=== PATIENT | female | born 1955 | race African-American/Black ===

== ENCOUNTER 2018-05-04 16:50 | Emergency (ER) | payer MEDICAID, OTHER ==
[~2018-05-04] VITALS: Ht 165.1 cm; Wt 55.0 kg
[2018-05-04 17:35] VITALS: BP 162/89
[2018-05-04 19:54] LABS: BASOPHILS % 0.8 % (0.0-2.0); EOSINOPHILS % 1.9 % (0.0-5.0); HEMATOCRIT. 40.9 % (36.0-48.0); HEMOGLOBIN. 13.8 g/dL (12.0-16.0); LYMPHOCYTES % 28.2 % (20.0-50.0); MEAN CORPUSCULAR HEMOGLOBIN 33.2 pg (28.0-32.0); MEAN CORPUSCULAR VOLUME 98.1 fL (81.0-99.0); MEAN PLATELET VOLUME 13.2 fl (7.4-10.4); MONOCYTES % 6.4 % (2.0-8.0); NEUTROPHILS % 62.7 % (40.0-76.0); PLATELET 95 x1000/uL (130-400); RED BLOOD CELL COUNT 4.17 mill/uL (4.2-5.4); RED CELL DISTRIBUTION WIDTH 15.8 % (11.6-14.6)
[2018-05-04 19:58] LABS: CHLORIDE 110 mEq/L (98-107); INR 1.4; PROTHROMBIN TIME 14.1 sec (9.4-11.6)
[2018-05-04 20:02] LABS: ETHANOL BLOOD < 10 mg/dL
== END 2018-05-05 | disposition left against medical advice (07) ==
LOC: ER 16:50
DX: R10.9 Unspecified abdominal pain (principal); F17.200 Nicotine dependence, unspecified, uncomplicated; K74.60 Unspecified cirrhosis of liver; Z86.19 Personal history of other infectious and parasitic diseases; Z90.710 Acquired absence of both cervix and uterus; Z90.49 Acquired absence of other specified parts of digestive tract
CPT/HCPCS: 36415; 80053; 83690; 85025; 85610; 99284; G0482

== ENCOUNTER 2018-07-08 15:45 | Emergency (ER) | payer MEDICAID, OTHER ==
[~2018-07-08] VITALS: Ht 160 cm; Wt 59.0 kg
[2018-07-08] MEDS ORDERED: HYDROCODONE/ACETAMINOPHEN 5/325MG TABLET PO STA (16:55)
[2018-07-08 18:03] LABS: BASOPHILS % 0.4 % (0.0-2.0); HEMATOCRIT. 40.5 % (36.0-48.0); HEMOGLOBIN. 13.7 g/dL (12.0-16.0); LYMPHOCYTES % 29.7 % (20.0-50.0); MEAN CORPUSCULAR HEMOGLOBIN 33.6 pg (28.0-32.0); MEAN PLATELET VOLUME 11.1 fl (7.4-10.4); MONOCYTES % 8.6 % (2.0-8.0); NEUTROPHILS % 60.3 % (40.0-76.0); PLATELET 130 x1000/uL (130-400); RED BLOOD CELL COUNT 4.08 mill/uL (4.2-5.4); RED CELL DISTRIBUTION WIDTH 15.6 % (11.6-14.6)
[2018-07-08 18:05] LABS: CHLORIDE 107 mEq/L (98-107)
[2018-07-08 18:07] LABS: INR 1.3; PROTHROMBIN TIME 12.8 sec (9.1-11.1)
[2018-07-08 21:10] VITALS: BP 111/66
== END 2018-07-08 21:30 | disposition home or self-care (01) ==
LOC: ER 16:37
DX: R10.84 Generalized abdominal pain (principal); R14.0 Abdominal distension (gaseous); K59.00 Constipation, unspecified; E11.9 Type 2 diabetes mellitus without complications; I10 Essential (primary) hypertension; Z88.0 Allergy status to penicillin; Z88.5 Allergy status to narcotic agent
CPT/HCPCS: 36415; 49083; 80053; 83690; 85025; 85610; 87070; 87075; 87205; 89050; 99284

== ENCOUNTER 2018-07-11 19:18 | Emergency (ER) | payer MEDICAID ==
[~2018-07-11] VITALS: Ht 167.6 cm; Wt 63.0 kg
[2018-07-11] MEDS ORDERED: ACETAMINOPHEN 325MG TABLET PO ONE (22:15)
[2018-07-11 23:57] VITALS: BP 130/85
== END 2018-07-12 00:02 | disposition home or self-care (01) ==
LOC: ER 19:52
DX: R10.9 Unspecified abdominal pain (principal); F17.200 Nicotine dependence, unspecified, uncomplicated; E11.9 Type 2 diabetes mellitus without complications; Z88.0 Allergy status to penicillin; Z88.5 Allergy status to narcotic agent
CPT/HCPCS: 99283

== ENCOUNTER 2018-07-15 13:30 | Emergency (ER) | payer MEDICAID ==
[~2018-07-15] VITALS: Ht 167.6 cm; Wt 66.0 kg
[2018-07-15] MEDS ORDERED: ACETAMINOPHEN WITH CODEINE 300/30MG TABLET PO ONE (14:30)
[2018-07-15 15:00] LABS: BASOPHILS % 0.4 % (0.0-2.0); HEMOGLOBIN. 13.4 g/dL (12.0-16.0); LYMPHOCYTES % 32.1 % (20.0-50.0); MEAN CORPUSCULAR HEMOGLOBIN 32.9 pg (28.0-32.0); MEAN PLATELET VOLUME 11.4 fl (7.4-10.4); MONOCYTES % 8.8 % (2.0-8.0); NEUTROPHILS % 57.7 % (40.0-76.0); PLATELET 127 x1000/uL (130-400); RED BLOOD CELL COUNT 4.08 mill/uL (4.2-5.4); RED CELL DISTRIBUTION WIDTH 15.1 % (11.6-14.6)
[2018-07-15 15:06] LABS: INR 1.3; PROTHROMBIN TIME 12.6 sec (9.1-11.1)
[2018-07-15] MEDS ORDERED: SODIUM BICARBONATE 4% (2.4MEQ) 5ML VIAL IV ONE (15:06)
[2018-07-15] MEDS ORDERED: LIDOCAINE HCL 1% 10 MG/ML 10ML VIAL ONE (15:06)
[2018-07-15 15:11] LABS: CHLORIDE 106 mEq/L (98-107)
[2018-07-15] MEDS ORDERED: MORPHINE SULFATE 10 MG/ML CPJ IM ONE (16:15)
[2018-07-15 18:59] VITALS: BP 135/75
== END 2018-07-15 19:36 | disposition home or self-care (01) ==
LOC: ER 13:30
DX: R18.8 Other ascites (principal); F17.200 Nicotine dependence, unspecified, uncomplicated; E11.9 Type 2 diabetes mellitus without complications; Z88.0 Allergy status to penicillin; Z88.5 Allergy status to narcotic agent; Z98.890 Other specified postprocedural states
CPT/HCPCS: 36415; 49083; 80053; 83690; 85025; 85610; 87070; 87205; 89050; 96372; 99285; J2270; J3490; Z7610

== ENCOUNTER 2018-07-21 12:51 | Emergency (ER) | payer MEDICAID ==
[~2018-07-21] VITALS: Ht 165.1 cm; Wt 65.0 kg
[2018-07-21] MEDS ORDERED: LIDOCAINE HCL 1% 20ML VIAL (Pyxis) INJ ONE (13:58)
[2018-07-21] MEDS ORDERED: SODIUM BICARBONATE 4% (2.4MEQ) 5ML VIAL IV ONE (13:59)
[2018-07-21 14:10] LABS: BASOPHILS % 0.4 % (0.0-2.0); EOSINOPHILS % 0.9 % (0.0-5.0); HEMATOCRIT. 42.9 % (36.0-48.0); HEMOGLOBIN. 14.3 g/dL (12.0-16.0); LYMPHOCYTES % 32.9 % (20.0-50.0); MEAN CORPUSCULAR VOLUME 98.8 fL (81.0-99.0); MEAN PLATELET VOLUME 11.4 fl (7.4-10.4); MONOCYTES % 8.2 % (2.0-8.0); NEUTROPHILS % 57.6 % (40.0-76.0); PLATELET 136 x1000/uL (130-400); RED BLOOD CELL COUNT 4.34 mill/uL (4.2-5.4); RED CELL DISTRIBUTION WIDTH 15.5 % (11.6-14.6)
[2018-07-21 14:17] LABS: INR 1.2; PARTIAL THROMBOPLASTIN TIME 33.7 sec (23.4-31.0); PROTHROMBIN TIME 12.3 sec (9.1-11.1)
[2018-07-21] MEDS ORDERED: ACETAMINOPHEN 325MG TABLET PO ONE (15:45)
[2018-07-21 17:35] VITALS: BP 147/75
== END 2018-07-21 17:30 | disposition home or self-care (01) ==
LOC: ER 13:21
DX: R18.8 Other ascites (principal); K74.60 Unspecified cirrhosis of liver; G89.29 Other chronic pain; F41.9 Anxiety disorder, unspecified; E11.9 Type 2 diabetes mellitus without complications; R94.31 Abnormal electrocardiogram [ECG] [EKG]; H54.62 Unqualified visual loss, left eye, normal vision right eye; Z88.0 Allergy status to penicillin; Z86.19 Personal history of other infectious and parasitic diseases
CPT/HCPCS: 36415; 49083; 85025; 85610; 85730; 93005; 99285; J3490; Z7610

== ENCOUNTER 2018-08-09 12:59 | Emergency (ER) | payer MEDICAID ==
[~2018-08-09] VITALS: Ht 165.1 cm; Wt 70.0 kg
[2018-08-09] MEDS ORDERED: KETOROLAC 30MG/ML VIAL IV STA (13:25)
[2018-08-09] MEDS ORDERED: ONDANSETRON HCL 4MG/2ML INJ IV STA (13:25)
[2018-08-09 15:03] LABS: BASOPHILS % 0.4 % (0.0-2.0); EOSINOPHILS % 0.8 % (0.0-5.0); HEMATOCRIT. 39.7 % (36.0-48.0); HEMOGLOBIN. 13.5 g/dL (12.0-16.0); LYMPHOCYTES % 25.3 % (20.0-50.0); MEAN CORPUSCULAR HEMOGLOBIN 32.7 pg (28.0-32.0); MEAN CORPUSCULAR VOLUME 96.3 fL (81.0-99.0); MONOCYTES % 7.2 % (2.0-8.0); NEUTROPHILS % 66.3 % (40.0-76.0); PLATELET 107 x1000/uL (130-400); RED BLOOD CELL COUNT 4.12 mill/uL (4.2-5.4); RED CELL DISTRIBUTION WIDTH 15.1 % (11.6-14.6)
[2018-08-09 15:14] LABS: INR 1.4; PROTHROMBIN TIME 13.8 sec (9.1-11.1)
[2018-08-09 15:15] LABS: CHLORIDE 100 mEq/L (98-107)
[2018-08-09] MEDS ORDERED: POTASSIUM CHLORIDE 20MEQ TABLET SR PO ONE (15:30)
[2018-08-09 16:37] LABS: CLARITY URINE CLOUDY (CLEAR); COLOR URINE YELLOW (YELLOW); KETONES URINE NEGATIVE (NEGATIVE); LEUKOCYTE ESTERASE URINE 3+ (NEGATIVE); NITRITE URINE POSITIVE (NEGATIVE); OCCULT BLOOD URINE 2+ (NEGATIVE); PROTEIN URINE NEGATIVE (NEGATIVE)
[2018-08-09 17:54] VITALS: BP 153/64
== END 2018-08-09 17:56 | disposition home or self-care (01) ==
LOC: ER 13:39 → CANBEDREQ 17:18 → ER 17:56
DX: K86.1 Other chronic pancreatitis (principal); E87.6 Hypokalemia; N39.0 Urinary tract infection, site not specified; E11.9 Type 2 diabetes mellitus without complications; Z88.0 Allergy status to penicillin; Z88.5 Allergy status to narcotic agent
CPT/HCPCS: 36415; 71045; 80053; 81003; 83690; 85025; 85610; 87077; 87086; 87186; 93005; 96374; 96375; 99285; J1885; J2405

== ENCOUNTER 2018-09-08 11:00 | Emergency (ER) | payer MEDICAID ==
[~2018-09-08] VITALS: Ht 170.2 cm; Wt 65.5 kg
[2018-09-08 12:13] LABS: BASOPHILS % 0.6 % (0.0-2.0); EOSINOPHILS % 0.8 % (0.0-5.0); HEMATOCRIT. 45.3 % (36.0-48.0); HEMOGLOBIN. 15.4 g/dL (12.0-16.0); LYMPHOCYTES % 28.6 % (20.0-50.0); MEAN CORPUSCULAR HEMOGLOBIN 32.5 pg (28.0-32.0); MEAN CORPUSCULAR VOLUME 95.4 fL (81.0-99.0); MEAN PLATELET VOLUME 11.4 fl (7.4-10.4); MONOCYTES % 6.5 % (2.0-8.0); NEUTROPHILS % 63.5 % (40.0-76.0); PLATELET 143 x1000/uL (130-400); RED BLOOD CELL COUNT 4.75 mill/uL (4.2-5.4)
[2018-09-08 12:18] LABS: CHLORIDE 102 mEq/L (98-107)
[2018-09-08 12:29] LABS: INR 1.3; PROTHROMBIN TIME 12.6 sec (9.1-11.1)
[2018-09-08] MEDS ORDERED: MORPHINE SULFATE 4 MG/ML CPJ (NOT FOR IM USE) IV ONE (13:15)
[2018-09-08] MEDS ORDERED: ONDANSETRON HCL 4MG/2ML INJ IV ONE (13:15)
[2018-09-08] MEDS ORDERED: SODIUM BICARBONATE 4% (2.4MEQ) 5ML VIAL IV ONE (13:20)
[2018-09-08 15:25] VITALS: BP 160/83
== END 2018-09-08 15:40 | disposition home or self-care (01) ==
LOC: ER 11:21
DX: K74.69 Other cirrhosis of liver (principal); R18.8 Other ascites; R74.0 Nonspecific elevation of levels of transaminase and lactic acid dehydrogenase [LDH]; E80.6 Other disorders of bilirubin metabolism; E88.09 Other disorders of plasma-protein metabolism, not elsewhere classified; Z88.0 Allergy status to penicillin; Z87.891 Personal history of nicotine dependence
CPT/HCPCS: 36415; 49083; 80053; 85025; 85610; 96374; 96375; 99285; J2270; J2405; J3490